=== PATIENT | male | born 1950 | race Hispanic/Latino ===

== ENCOUNTER 2020-05-20 15:31 | Emergency (ER) | payer BC ==
[2020-05-20 16:26] LABS: Protime INR 1.16
--- NOTE | 2020-05-20 16:29 | RAD REPORT ---
EXAM DESCRIPTION: RAD - Chest Single View - 05/20/2020 4:18 pm CLINICAL HISTORY: fall, hit head Chest pain. COMPARISON: No comparisons FINDINGS: Portable technique limits examination quality. The lungs are grossly clear. The heart is normal in size. No displaced fractures.Mildly tortuous thor acic aorta. IMPRESSION: No acute intrathoracic process suspected.
--- NOTE | 2020-05-20 16:38 | RAD REPORT ---
EXAM DESCRIPTION: CT - CTHCSPWOC - 05/20/2020 4:28 pm CLINICAL HISTORY: Trauma, head and neck injury. head injury COMPARISON: No comparisons TECHNIQUE: Axial 5 mm thick images of the head were obtained. Axial 2 mm thick images of the cervical spine were obtained with sagittal and coronal reconstruction images generated and reviewed. All CT scans are performed using dose optimization technique as appropriate and may include automated exposure control or mA/KV adjustment according to patient size. FINDINGS: CT HEAD WITHOUT CONTRAST: No acute hemorrhage, hydrocephalus or extra-axial collection is identified.No areas of brain edema or midline shift. The paranasal sinuses and mastoids are clear.The calvarium is intact. CT CERVICAL SPINE WITHOUT CONTRAST: No fracture or subluxation.Moderate multilevel midcervical degenerative changes.No prevertebral soft tissues swelling is identified. IMPRESSION: No acute intracranial or cervical spine findings. Moderate midcervical degenerative changes.
[2020-05-20 16:42] LABS: Absolute Lymphocytes (CBC) 2.1 K/uL (0.7-4.9); Basophils % 0.7 % (0-1.3); Hematocrit 44.1 % (39.6-49.0); Lymphocytes % 25.1 % (15.3-44.8); MPV 10.5 fL (7.6-11.3); RBC Red Blood Cell Count 4.67 M/uL (4.33-5.43)
[2020-05-20 16:57] LABS: ALT/SGPT 32 U/L (12-78); AST/SGOT 16 U/L (15-37); Albumin 3.8 g/dL (3.4-5.0); Alkaline Phosphatase 80 U/L (45-117); BUN Blood Urea Nitrogen 29 mg/dL (7-18); Bicarbonate 25 mmol/L (21-32); Bilirubin Direct < 0.1 mg/dL (0-0.2); Bilirubin Total 0.4 mg/dL (0.2-1.0); Glucose Level 101 mg/dL (74-106); Magnesium 2.2 mg/dL (1.8-2.4); NT PRO-BNP 116 pg/mL (<125); Potassium 3.9 mmol/L (3.5-5.1); Protein, Total 7.7 g/dL (6.4-8.2); Sodium Level 141 mmol/L (136-145); Troponin (Emerg Dept Use Only) < 0.02 ng/mL (0.0-0.045)
--- NOTE | 2020-05-20 17:12 | ER ---
Nurse's Notes [facility] Name: Mookie Gutierrez Age: 69 yrs Sex: Male : 1950 Arrival Date: 05/20/2020 Time: 15:34 Bed 27 Private MD: Diagnosis: Hypertensive heart disease;Abnormal electrocardiogram [ECG] [EKG];Contusion of unspecified part of head Presentation: 05/20 15:34 Chief complaint: EMS states: Pt from [employer], slipped while working and hit back of his ph head on a pipe, no LOC, BP high 200s systolic, hx of HTN, takes Valsartan, took meds this morning, c/o headache, denies dizziness, nausea, or blurred vision. Coronavirus screen: Client denies travel out of the [place] in the last 14 days. At this time, the client does not indicate any symptoms associated with coronavirus-19. Ebola Screen: No symptoms or risks identified at this time. Mechanism of Injury: The problem was sustained at an industrial site, resulted from a fall, slipped. Initial Sepsis Screen: Does the patient meet any 2 criteria? No. Patient's initial sepsis screen is negative. Does the patient have a suspected source of infection? No. Patient's initial sepsis screen is negative. Risk Assessment: Do you want to hurt yourself or someone else? Patient reports no desire to harm self or others. Onset of symptoms was May 20, 2020. 15:34 Method Of Arrival: EMS: [facility] ph 15:34 Acuity: [facility]RON 2 ph Historical: - Allergies: 15:38 No Known Allergies; ph - Home Meds: 15:38 valsartan oral oral [Active]; ph - PMHx: 15:38 Hypertension; ph - Immunization history:: Adult Immunizations unknown. - Social history:: Smoking status: Patient denies any tobacco usage or history of. Screenin:38 Abuse screen: Denies threats or abuse. Denies injuries from another. Nutritional ph screening: No deficits noted. Tuberculosis screening: No symptoms or risk factors identified. Fall Risk None identified. Assessment: 16:01 General: Appears in no apparent distress. comfortable, well groomed, Behavior is calm, ph cooperative, appropriate for age. Pain: Complains of pain in occipital area. Neuro: Level of Consciousness is awake, alert, obeys commands, Oriented to person, place, time, situation, Reports headache occipital area, Denies weakness blurred vision dizziness, diplopia. Cardiovascular: Denies chest pain, lightheadedness, nausea, Capillary refill < 3 seconds in bilateral fingers Patient's skin is warm and dry. Respiratory: Airway is patent Respiratory effort is even, unlabored, Respiratory pattern is regular, symmetrical. GI: No signs and/or symptoms were reported involving the gastrointestinal system. Patient currently denies nausea, vomiting. Derm: Skin is intact, Skin is pink, warm \T\ dry. Musculoskeletal: Circulation, motion, and sensation intact. Range of motion: intact in all extremities. 17:00 Reassessment: Patient appears in no apparent distress at this time. Patient and/or ph family updated on plan of care and expected duration. Pain level reassessed. Patient is alert, oriented x 3, equal unlabored respirations, skin warm/dry/pink. 18:19 Reassessment: Patient appears in no apparent distress at this time. Patient and/or ph family updated on plan of care and expected duration. Pain level reassessed. Patient is alert, oriented x 3, equal unlabored respirations, skin warm/dry/pink. Pt d/c from ED at 1800, instructed to follow up w/ operator technician tomorrow, after d/c pt it was notes that ERP had added prescriptions x 2 to d/c, attempted to locate pt in lobby and parking lot but was unable to, charge nurse notified who called phone number provided to registration but it was not a working number. Vital Signs: 15:34 BP 186 / 96; Pulse 80; Resp 18; Temp 99.1(O); Pulse Ox 98% on R/A; Weight 74.84 kg; ph 16:33 BP 188 / 91; Pulse 75; Resp 16; Temp 98.9(O); Pulse Ox 98% on R/A; mh5 17:12 BP 181 / 95; Pulse 71; Resp 18; Temp 98.8(O); Pulse Ox 100% on R/A; mh5 17:20 BP 161 / 85; Pulse 62; Resp 16; Pulse Ox 99% on R/A; ph Екатерина Coma Score: 15:34 Eye Response: spontaneous(4). Verbal Response: oriented(5). Motor Response: obeys commands(6). Total: 15. 16:05 Eye Response: spontaneous(4). Verbal Response: oriented(5). Motor Response: obeys cp commands(6). Total: 15. ED Course: 15:34 Patient arrived in ED. ph 15:34 Patient has correct armband on for positive identification. Bed in low position. Call [facility] light in reach. Side rails up X 1. Warm blanket given. satellite project site monitor on. Pulse ox on. NIBP on. 15:35 Prashant Tracy PA is PHCP. cp 15:35 Scott Christy MD is Attending Physician. cp 15:38 Triage completed. ph 15:39 Arm band placed on Patient placed in an exam room, on a stretcher, on monitoring specialist, ph on pulse oximetry. 16:01 Ashlee Read, RN is Primary Nurse. ph 16:06 Basic Metabolic Panel Sent. 5 16:06 CBC with Diff Sent. 5 16:06 LFT's Sent. 5 16:06 Magnesium Sent. 5 16:06 NT PRO-BNP Sent. 5 16:06 Troponin (emerg Dept Use Only) Sent. 5 16:07 PT-INR Sent. 5 16:07 Initial lab(s) drawn, by ut, sent to lab. EKG done, by ED staff, reviewed by Scott Christy MD. Inserted saline lock: 20 gauge in right antecubital area, using aseptic technique. Blood collected. 16:18 XRAY Chest (1 view) In Process Unspecified. EDMS 16:29 CT Head C Spine In Process Unspecified. EDMS 17:09 Bulmaro Christy MD is Hospitalizing Provider. cp 17:40 Tez Erickson MD is Referral Physician. cp 18:05 No provider procedures requiring assistance completed. IV discontinued, intact, ph bleeding controlled, No redness/swelling at site. Pressure dressing applied. Administered Medications: 17:13 Drug: Aspirin Chewable Tablet 324 mg Route: PO; ph 18:03 Follow up: Response: No adverse reaction ph 17:13 Drug: Metoprolol 25 mg Route: PO; ph 18:03 Follow up: Response: No adverse reaction; Blood pressure is lowered ph 17:13 Drug: Metoprolol 5 mg Route: IVP; Site: right antecubital; ph 18:03 Follow up: Response: No adverse reaction; Blood pressure is lowered ph Outcome: 17:10 Decision to Hospitalize by Provider. cp 17:41 Discharge ordered by MD. cp 18:00 Discharged to home ambulatory. ph 18:00 Condition: good 18:00 Discharge instructions given to patient, Instructed on discharge instructions, follow up and referral plans. Demonstrated understanding of instructions, follow-up care. 18:21 Patient left the ED. ph Signatures: Dispatcher [employer] Ashlee Kruger RN RN ph Prashant Tracy PA PA Cherie Daniels [facility]
--- NOTE | 2020-05-20 17:12 | EDPHYS ---
Physician Documentation [facility] Name: Mookie Gutierrez Age: 69 yrs Sex: Male : 1950 Arrival Date: 05/20/2020 Time: 15:34 Bed 27 Private MD: ED Physician Scott Christy HPI: 05/20 16:05 This 69 yrs old Male presents to ER via EMS with complaints of Closed Head cp Injury-Adult, High Blood Pressure. 16:05 The patient or guardian reports injury. The complaints affect the occipital area. cp 16:05 Context of injury: The problem was sustained at work, resulted from slip and fall. cp Onset: The symptoms/episode began/occurred just prior to arrival. Associated signs and symptoms: Loss of consciousness: This patient did not experience any loss of consciousness. Pertinent positives: elevated blood pressure. Patient brought to ED via EMS after falling backward and striking back of head against pipe. No LOC. Patient was found to have elevated blood pressure so he was brought to ED for evaluation. Patient reports he takes Losartan for HTN daily. Historical: - Allergies: 15:38 No Known Allergies; ph - Home Meds: 15:38 valsartan oral oral [Active]; ph - PMHx: 15:38 Hypertension; ph - Immunization history:: Adult Immunizations unknown. - Social history:: Smoking status: Patient denies any tobacco usage or history of. ROS: 16:08 Constitutional: Negative for body aches, chills, fever, poor PO intake. cp 16:08 Eyes: Negative for injury, pain, redness, and discharge. cp 16:08 Neck: Negative for pain with movement, pain at rest, stiffness. 16:08 Cardiovascular: Negative for chest pain, edema, palpitations. 16:08 Respiratory: Negative for cough, shortness of breath, wheezing. 16:08 Abdomen/GI: Negative for abdominal pain, nausea, vomiting, and diarrhea. 16:08 Back: Negative for pain at rest, pain with movement. 16:08 Neuro: Negative for altered mental status, dizziness, headache, loss of consciousness, speech changes, syncope, weakness. 16:08 All other systems are negative. Exam: 16:00 ECG was reviewed by the Attending Physician. cp 16:10 Constitutional: The patient appears in no acute distress, alert, awake, cp non-diaphoretic, non-toxic, well developed, well nourished. 16:10 Head/Face: Normocephalic, atraumatic. cp 16:10 Eyes: Periorbital structures: appear normal, Pupils: equal, round, and reactive to light and accomodation, Extraocular movements: intact throughout, Conjunctiva: normal, no exudate, no injection, Sclera: no appreciated abnormality, Lids and lashes: appear normal, bilaterally. 16:10 ENT: External ear(s): are unremarkable, Nose: is normal, Mouth: Lips: moist, Oral mucosa: pink and intact, moist, Posterior pharynx: Airway: no evidence of obstruction, patent, swelling, is not appreciated, erythema, is not appreciated, exudate, is not appreciated. 16:10 Neck: C-spine: vertebral tenderness, is not appreciated, crepitus, is not appreciated, ROM/movement: is normal, is supple, without pain, no range of motions limitations, no nuchal rigidity. 16:10 Chest/axilla: Inspection: normal, Palpation: is normal, no crepitus, no tenderness. 16:10 Cardiovascular: Rate: normal, Rhythm: regular, Pulses: Pulses are 2+ in right radial artery and left radial artery. Edema: is not appreciated, JVD: is not appreciated. 16:10 Respiratory: the patient does not display signs of respiratory distress, Respirations: normal, no use of accessory muscles, no retractions, labored breathing, is not present, Breath sounds: are clear throughout, no decreased breath sounds. 16:10 Abdomen/GI: Inspection: abdomen appears normal, Palpation: abdomen is soft and non-tender, in all quadrants, rebound tenderness, is not appreciated, voluntary guarding, is not appreciated, involuntary guarding, is not appreciated. 16:10 Back: pain, is absent, ROM is normal. 16:10 Neuro: Orientation: to person, place \T\ time. Mentation: is normal, Cerebellar function: is grossly normal, Motor: moves all fours, strength is normal, Sensation: is normal. Vital Signs: 15:34 BP 186 / 96; Pulse 80; Resp 18; Temp 99.1(O); Pulse Ox 98% on R/A; Weight 74.84 kg; ph 16:33 BP 188 / 91; Pulse 75; Resp 16; Temp 98.9(O); Pulse Ox 98% on R/A; mh5 17:12 BP 181 / 95; Pulse 71; Resp 18; Temp 98.8(O); Pulse Ox 100% on R/A; mh5 17:20 BP 161 / 85; Pulse 62; Resp 16; Pulse Ox 99% on R/A; ph Екатерина Coma Score: 15:34 Eye Response: spontaneous(4). Verbal Response: oriented(5). Motor Response: obeys ph commands(6). Total: 15. 16:05 Eye Response: spontaneous(4). Verbal Response: oriented(5). Motor Response: obeys cp commands(6). Total: 15. MDM: 15:45 Patient medically screened. cp 16:30 Differential diagnosis: Contusion of Hematoma on Intracranial bleed- Concussion cp cerebral contusion. 17:35 Physician consultation: Tez Erickson MD was contacted at 17:35, regarding consult, cp patient's condition, EKG reviewed. Wants patient discharged to home and to f/u in clinic tomorrow. Patient to start metoprolol 25 mg bid and hydrochlorothiazide. 17:40 Data reviewed: vital signs, nurses notes, lab test result(s), EKG, radiologic studies, cp CT scan. 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 Response to treatment: the patient's symptoms have markedly improved after treatment, and as a result, I will discharge patient. 05/20 16:05 Order name: Basic Metabolic Panel; Complete Time: 17: cp 05/20 16:05 Order name: CBC with Diff; Complete Time: 17: cp 05/20 16:05 Order name: LFT's; Complete Time: 17:03 cp 05/20 16:05 Order name: Magnesium; Complete Time: 17:03 cp 05/20 16:05 Order name: NT PRO-BNP; Complete Time: 17:03 cp 05/20 16:05 Order name: PT-INR; Complete Time: 17: cp 05/20 16:05 Order name: CT Head C Spine; Complete Time: 17:03 cp 05/20 16:05 Order name: Troponin (emerg Dept Use Only); Complete Time: 17:03 cp 05/20 16:05 Order name: XRAY Chest (1 view); Complete Time: 17:03 cp 05/20 16:05 Order name: EKG; Complete Time: 16:06 cp 05/20 16:05 Order name: Cardiac monitoring; Complete Time: 16: cp 05/20 16:05 Order name: EKG - Nurse/Tech; Complete Time: 16:06 cp 05/20 16:05 Order name: IV Saline Lock; Complete Time: 16:06 cp 05/20 16:05 Order name: Labs collected and sent; Complete Time: 16:07 cp 05/20 16:05 Order name: O2 Per Protocol; Complete Time: 16:18 cp 05/20 16:05 Order name: O2 Sat Monitoring; Complete Time: 16:18 cp EC:00 Rate is 78 beats/min. Rhythm is regular. WV interval is normal. QRS interval is normal. cp QT interval is normal. T waves are Inverted in leads I, II, aVL, V2, V4, V5. Interpreted by me. Reviewed by me. Administered Medications: 17:13 Drug: Aspirin Chewable Tablet 324 mg Route: PO; ph 18:03 Follow up: Response: No adverse reaction ph 17:13 Drug: Metoprolol 25 mg Route: PO; ph 18:03 Follow up: Response: No adverse reaction; Blood pressure is lowered ph 17:13 Drug: Metoprolol 5 mg Route: IVP; Site: right antecubital; ph 18:03 Follow up: Response: No adverse reaction; Blood pressure is lowered ph Disposition: 05/20/20 17:41 Discharged to Home. Impression: Hypertensive heart disease, Abnormal electrocardiogram [ECG] [EKG], Contusion of unspecified part of head. - Condition is Stable. - Discharge Instructions: Facial or Scalp Contusion, Hypertension, How to Take Your Blood Pressure, [id number], Aspirin and Your Heart, Managing Your Hypertension. - Prescriptions for Metoprolol Tartrate 25 mg Oral Tablet - take 1 tablet by ORAL route 2 times per day with a meal; 20 tablet. Hydrochlorothiazide 12.5 mg Oral Tablet - take 1 tablet by ORAL route once daily; 30 tablet. - Medication Reconciliation Form, Thank You Letter, Antibiotic Education, Prescription Opioid Use form. - Follow up: Tez Erickson MD; When: Tomorrow; Reason: abnormal EKG, hypertension. - Problem is new. - Symptoms have improved. Addendum: 05/23/2020 10:04 Co-signature as Attending Physician, Scott Christy MD. r n Signatures: Dispatcher [employer] EDMS Scott Christy MD MD rn Ashlee Read RN RN ph Rossana, CARMENZA Cerda cp Corrections: (The following items were deleted from the chart) 05/20 17:40 17:10 Hospitalization Ordered by Bulmaro Christy MD for Observation. Preliminary cp diagnosis is Abnormal electrocardiogram [ECG] [EKG]; Contusion of unspecified part of head - from slip and fall; Hypertensive heart disease. Bed requested for Telemetry/MedSurg (observation). Status is Observation. Condition is Stable. Problem is new. Symptoms have improved. cp 17:55 17:41 05/20/2020 17:41 Discharged to Home. Impression: Hypertensive heart disease; cp Abnormal electrocardiogram [ECG] [EKG]. Condition is Stable. Forms are Medication Reconciliation Form, Thank You Letter, Antibiotic Education, Prescription Opioid Use. Follow up: Tez Erickson; When: Tomorrow; Reason: abnormal EKG, hypertension. Problem is new. Symptoms have improved. cp 18:21 17:55 05/20/2020 17:41 Discharged to Home. Impression: Hypertensive heart disease; ph Abnormal electrocardiogram [ECG] [EKG]; Contusion of unspecified part of head. Condition is Stable. Forms are Medication Reconciliation Form, Thank You Letter, Antibiotic Education, Prescription Opioid Use. Follow up: Tez Erickson; When: Tomorrow; Reason: abnormal EKG, hypertension. Problem is new. Symptoms have improved. cp
[2020-05-20] MEDS ORDERED: ASPIRIN 81 MG CHEWABLE TABLET ONE (17:23)
[2020-05-20] MEDS ORDERED: METOPROLOL TAR 25 MG TAB ONE (17:24)
[2020-05-20] MEDS ORDERED: METOPROLOL TARTRATE 5 MG/5 ML INJ IV ONE (17:24)
--- NOTE | 2020-05-20 17:52 | P.CNS ---
Date of Consult: 05/20/20 Reason for Consult: t wave inversions Requesting Physician: Prashant Tracy Chief Complaint: fell at work, slipped on mud History of Present Illness: 69yo M, PMH: HTN, sent to ED from work after slipping and falling in mud. He reports hitting his head, was wearing a helmet. He denies any other complaints. Currently without any pain, denies chest pain, denies shortness of breath, abdominal pain, lower extremity edema, difficulty with urination/bowel movement. Denies any cardiac cancer, also reports has not seen a physician in several years. In the ED was noted to have hypertension 180s/90s, reports he has been taking his losartan. He does not recall the dosage. Workup in the ED notable for negative CT head/C-spine, negative chest x-ray, labwork rather unremarkable except for creatinine of 1.46. Troponin negative. EKG with T-wave inversions in leads V2, V4-T6, 1,2 avL, no significant ST elevation/depression - Past Medical/Surgical History -: HTN Past Surgical History: Patient denies surgical history - Social History Smoking Status: Never smoker Alcohol use: No Place of Residence: Home Review of Systems 10-point ROS is otherwise unremarkable Physical Examination General: Alert, In no apparent distress, Oriented x3 HEENT: PERRLA, Sclerae nonicteric Neck: Supple Respiratory: Clear to auscultation bilaterally, Normal air movement Cardiovascular: No edema, Regular rate/rhythm, Normal S1 S2, No murmurs Gastrointestinal: Soft and benign, Non-distended, No tenderness Musculoskeletal: No erythema, No tenderness Integumentary: No rashes, No significant lesion Neurological: Normal speech, Normal strength at 5/5 x4 extr, Cranial nerves 3-12 intact, Normal affect Laboratory Data (last 24 hrs) 05/20/20 16:08: PT 13.7 H, INR 1.16 05/20/20 16:08: WBC 8.5, Hgb 14.5, Hct 44.1, Plt Count 278 05/20/20 16:08: Sodium 141, Potassium 3.9, BUN 29 H, Creatinine 1.46 H, Glucose 101, Magnesium 2.2, Total Bilirubin 0.4, AST 16, ALT 32, Alkaline Phosphatase 80 Physician Review Additional Text: T-wave inversions HTN Mechanical Fall -CT head/c-spine negative for trauma/bleed -BP improved with PO lopressor in ED -denies any chest pain /pressure -reviewed EKG and results with Dr. Erickson, recommended dc home with metoprolol, losartan-HCTZ and to f/u with him in office tomorrow at 1pm, EKG likely due to LVH -discussed with patient who is agreement with plan Time Spent Managing Pts care (In Minutes): 60
[2020-05-20 18:31] VITALS: TEMP 98.8
[2020-05-20 18:33] VITALS: BP 161/85; O2SAT 99
== END 2020-05-20 18:21 | disposition home or self-care (01) ==
LOC: ER 15:31
DX: S00.93XA Contusion of unspecified part of head, initial encounter (principal); W01.198A Fall on same level from slipping, tripping and stumbling with subsequent striking against other object, initial encounter; Y93.89 Activity, other specified; Y92.69 Other specified industrial and construction area as the place of occurrence of the external cause; Y99.0 Civilian activity done for income or pay; I11.9 Hypertensive heart disease without heart failure; R94.31 Abnormal electrocardiogram [ECG] [EKG]
CPT/HCPCS: 36415; 70450; 71045; 72125; 80048; 80076; 83735; 83880; 84484; 85025; 85610; 96374; 99285

== ENCOUNTER 2022-09-06 08:46 | Emergency (ER) | payer OTHER, BC ==
[2022-09-06 09:24] LABS: Absolute Lymphocytes (CBC) 2.2 K/uL (0.7-4.9); Hematocrit 44.6 % (39.6-49.0); Lymphocytes % 28.4 % (15.3-44.8); MCV 93.7 fL (80-100); MPV 9.2 fL (7.6-11.3); RBC Red Blood Cell Count 4.76 M/uL (4.33-5.43)
[2022-09-06] MEDS ORDERED: HYDRALAZINE HCL 20 MG/ML VIAL ONE (09:45)
[2022-09-06 09:50] LABS: Potassium 4.2 mEq/L (3.5-5.1); Troponin High Sensitivity 24.3 pg/mL (<58.9)
--- NOTE | 2022-09-06 10:04 | RAD REPORT ---
EXAM DESCRIPTION: RAD - Chest Single View - 09/06/2022 9:36 am CLINICAL HISTORY: DYSPNEA Chest pain. COMPARISON: Chest Single View dated 05/20/2020 FINDINGS: Portable technique limits examination quality. The lungs are grossly clear. The heart is normal in size. The mild tortuosity of the thoracic aorta. No displaced fractures. IMPRESSION: No acute intrathoracic process suspected.
[2022-09-06] MEDS ORDERED: cloNIDine HCL 0.1 MG TAB ONE (10:28)
--- NOTE | 2022-09-06 11:11 | ER ---
Nurse's Notes [facility] Name: Mookie Gutierrez Age: 72 yrs Sex: Male : 1950 Arrival Date: 09/06/2022 Time: 08:46 Bed 20 Private MD: Diagnosis: Hypertensive urgency Presentation: 09/06 08:48 Chief complaint: EMS states: called out for SOB , pt states he inhaled some inhalation, iw he went to the clinic an his BP was over 200 systolic so they had him come to ER for eval, takes losartan for BP. Coronavirus screen: At this time, the client does not indicate any symptoms associated with coronavirus-19. Ebola Screen: Patient negative for fever greater than or equal to 101.5 degrees Fahrenheit, and additional compatible Ebola Virus Disease symptoms Patient denies exposure to infectious person. Patient denies travel to an Ebola-affected area in the 21 days before illness onset. No symptoms or risks identified at this time. Initial Sepsis Screen: Does the patient meet any 2 criteria? No. Patient's initial sepsis screen is negative. Does the patient have a suspected source of infection? No. Patient's initial sepsis screen is negative. Risk Assessment: Do you want to hurt yourself or someone else? Patient reports no desire to harm self or others. Onset of symptoms was September 06, 2022. 08:48 Method Of Arrival: EMS: [facility] iw 08:48 Acuity: [facility] 3 iw Historical: - Allergies: 08:50 No Known Allergies; iw - Home Meds: 08:50 losartan 25 mg oral tablet once [Active]; iw - PMHx: 08:47 Hypertension; aa5 - PSHx: 08:50 None; iw - Immunization history:: Adult Immunizations unknown. - Social history:: Smoking status: Patient denies any tobacco usage or history of. Screenin:46 [facility] ED Fall Risk Assessment (Adult) History of falling in the last 3 months, ph including since admission No falls in past 3 months (0 pts) Confusion or Disorientation No (0 pts) Intoxicated or Sedated No (0 pts) Impaired Gait No (0 pts) Mobility Assist Device Used No (0 pt) Altered Elimination No (0 pt) Score/Fall Risk Level 0 - 2 = Low Risk Oriented to surroundings, Maintained a safe environment, Hourly rounding (assess needs \T\ fall precautionary measures) done. Abuse screen: Denies threats or abuse. Denies injuries from another. Nutritional screening: No deficits noted. Tuberculosis screening: No symptoms or risk factors identified. Assessment: 09:45 General: Appears in no apparent distress. comfortable, well groomed, Behavior is calm, ph cooperative, appropriate for age. Pain: Denies pain. Neuro: Level of Consciousness is awake, alert, obeys commands, Oriented to person, place, time, situation, Denies dizziness, headache. Cardiovascular: Capillary refill < 3 seconds in bilateral fingers Patient's skin is warm and dry. Cardiovascular: Reports shortness of breath, Denies chest pain. Respiratory: Airway is patent Respiratory effort is even, unlabored. Respiratory: Reports shortness of breath at rest Respiratory pattern is regular, symmetrical. GI: No signs and/or symptoms were reported involving the gastrointestinal system. Derm: Skin is pink, warm \T\ dry. 11:44 Reassessment: Patient appears in no apparent distress at this time. Patient and/or ph family updated on plan of care and expected duration. Pain level reassessed. Patient is alert, oriented x 3, equal unlabored respirations, skin warm/dry/pink. Vital Signs: 08:48 BP 206 / 98; Pulse 75; Resp 16; Temp 97.9; Pulse Ox 99% on R/A; iw 09:44 BP 173 / 91; Pulse 72; Resp 18; Pulse Ox 98% on R/A; ph 10:30 BP 201 / 89; Pulse 74; Resp 18; Pulse Ox 98% on R/A; ph 11:09 BP 176 / 71; Pulse 72; Resp 18; Pulse Ox 100% on R/A; ph ED Course: 08:47 Patient arrived in ED. aa5 08:50 Triage completed. iw 08:51 Pau Ibrahim FNP is PHCP. jh7 08:51 Elio Ryan DO is Attending Physician. jh7 08:51 Arm band placed on. iw 08:57 Ashlee Read, RN is Primary Nurse. ph 09:11 Inserted saline lock: 20 gauge in right antecubital area, using aseptic technique. zm Blood collected. 09:11 Basic Metabolic Panel Sent. zm 09:11 CBC with Diff Sent. zm 09:11 NT PRO-BNP Sent. zm 09:11 Troponin HS Sent. zm 09:38 XRAY Chest (1 view) In Process Unspecified. EDMS 09:46 Patient has correct armband on for positive identification. Bed in low position. Call ph light in reach. Side rails up X 1. Client placed on continuous cardiac and pulse oximetry monitoring. NIBP monitoring applied. 11:43 No provider procedures requiring assistance completed. IV discontinued, intact, ph bleeding controlled, No redness/swelling at site. Pressure dressing applied. Administered Medications: 09:44 Drug: hydrALAZINE IVP 10 mg Route: IVP; Site: right antecubital; ph 10:39 Follow up: Response: No adverse reaction; Blood pressure is unchanged ph 10:30 Drug: cloNIDine PO 0.1 mg Route: PO; ph 11:43 Follow up: Response: No adverse reaction; Blood pressure is lowered ph Medication: 09:46 VIS not applicable for this client. ph Outcome: 11:11 Discharge ordered by MD. fallon 11:43 Discharged to home ambulatory. ph 11:43 Condition: good 11:43 Discharge instructions given to patient, Instructed on discharge instructions, follow up and referral plans. Demonstrated understanding of instructions, follow-up care. 11:44 Patient left the ED. ph Signatures: Dispatcher [employer] EDMS Antonina Payne RN RN iw Calderon, Audri, RN RN aa5 Hall, Patricia, RN RN ph Martinez, Zaina zm Hadash, Jennifer, HEAD BANDER AND LINER OPERATOR HEAD BANDER AND LINER OPERATOR [facility]
--- NOTE | 2022-09-06 11:11 | EDPHYS ---
Physician Documentation [facility] Name: Mookie Gutierrez Age: 72 yrs Sex: Male : 1950 Arrival Date: 09/06/2022 Time: 08:46 Bed 20 Private MD: ED Physician Elio Ryan HPI: 09/06 08:47 This 72 yrs old Male presents to ER via EMS with complaints of High Blood [facility] Pressure. 08:47 The patient has elevated blood pressure and discovered this at a physician's office, [facility] and sent to the emergency department for evaluation. Onset: The symptoms/episode began/occurred acutely. 72-year-old male presents to the ER for hypertension and shortness of breath. The patient states that he went to see his doctor at the [facility] because he inhaled some insulation yesterday and now feels short of breath. The clinic evaluated him and sent him to the ER due to a blood pressure of 212/95. The patient states he takes losartan daily. Denies any other symptoms at this time.. Historical: - Allergies: 08:50 No Known Allergies; iw - Home Meds: 08:50 losartan 25 mg oral tablet once [Active]; iw - PMHx: 08:47 Hypertension; aa5 - PSHx: 08:50 None; iw - Immunization history:: Adult Immunizations unknown. - Social history:: Smoking status: Patient denies any tobacco usage or history of. ROS: 08:47 Constitutional: Negative for fever, chills, and weight loss, Eyes: Negative for injury, [facility] pain, redness, and discharge, ENT: Negative for injury, pain, and discharge, Neck: Negative for injury, pain, and swelling, Cardiovascular: Negative for chest pain, palpitations, and edema, Respiratory: Negative for shortness of breath, cough, wheezing, and pleuritic chest pain, Abdomen/GI: Negative for abdominal pain, nausea, vomiting, diarrhea, and constipation, MS/Extremity: Negative for injury and deformity, Skin: Negative for injury, rash, and discoloration, Neuro: Negative for headache, weakness, numbness, tingling, and seizure. 08:47 Respiratory: Positive for shortness of breath, on exertion. 08:47 All other systems are negative. Exam: 08:47 Constitutional: This is a well developed, well nourished patient who is awake, alert, jh7 and in no acute distress. Head/Face: Normocephalic, atraumatic. Eyes: Pupils equal round and reactive to light, extra-ocular motions intact. Lids and lashes normal. Conjunctiva and sclera are non-icteric and not injected. Cornea within normal limits. Periorbital areas with no swelling, redness, or edema. Neck: Trachea midline, no thyromegaly or masses palpated, and no cervical lymphadenopathy. Supple, full range of motion without nuchal rigidity, or vertebral point tenderness. No Meningismus. Cardiovascular: Regular rate and rhythm with a normal S1 and S2. No gallops, murmurs, or rubs. Normal PMI, no JVD. No pulse deficits. Respiratory: Lungs have equal breath sounds bilaterally, clear to auscultation and percussion. No rales, rhonchi or wheezes noted. No increased work of breathing, no retractions or nasal flaring. Abdomen/GI: Soft, non-tender, with normal bowel sounds. No distension or tympany. No guarding or rebound. No evidence of tenderness throughout. Back: No spinal tenderness. No costovertebral tenderness. Full range of motion. Skin: Warm, dry with normal turgor. Normal color with no rashes, no lesions, and no evidence of cellulitis. MS/ Extremity: Pulses equal, no cyanosis. Neurovascular intact. Full, normal range of motion. Neuro: Awake and alert, GCS 15, oriented to person, place, time, and situation. Motor strength 5/5 in all extremities. Sensory grossly intact. Normal gait. 09:10 ECG was reviewed by the Attending Physician. Compared with EKG done on 05/20/2020. No jh7 changes in comparison to old EKG. Patient still denies chest pain and is in no acute distress. Vital Signs: 08:48 BP 206 / 98; Pulse 75; Resp 16; Temp 97.9; Pulse Ox 99% on R/A; iw 09:44 BP 173 / 91; Pulse 72; Resp 18; Pulse Ox 98% on R/A; ph 10:30 BP 201 / 89; Pulse 74; Resp 18; Pulse Ox 98% on R/A; ph 11:09 BP 176 / 71; Pulse 72; Resp 18; Pulse Ox 100% on R/A; ph MDM: 08:51 Patient medically screened. 7 10:35 ED course: Spoke to the patient and employer. The employer stated that the small piece jh7 of insulation actually only landed on the patient's tongue and that the company required he get checked out by the at [facility]. He was sent to the ER only for high blood pressure. The patient denies any shortness of breath at this time.. 11:00 Differential diagnosis: hypertensive crisis, Malignant HTN. Data interpreted: Pulse jh7 oximetry: is 100 %. Interpretation: normal. Data reviewed: vital signs, nurses notes, old medical records, old EKG lab test result(s), EKG, radiologic studies, plain films. I considered the following discharge prescriptions or medication management in the emergency department Medications were administered in the Emergency Department. See MAR. Independent interpretation of the following test(s) in the Emergency Department EKG: See my EKG interpretation above X-Ray: My interpretation is no acute findings. Care significantly affected by the following chronic conditions: Hypertension. Counseling: I had a detailed discussion with the patient and/or guardian regarding: the historical points, exam findings, and any diagnostic results supporting the discharge/admit diagnosis, to return to the emergency department if symptoms worsen or persist or if there are any questions or concerns that arise at home. 09/06 08:51 Order name: Basic Metabolic Panel; Complete Time: 10:27 [facility] 09/06 08:51 Order name: CBC with Diff; Complete Time: 09:56 [facility] 09/06 08:51 Order name: NT PRO-BNP; Complete Time: 10:27 [facility] 09/06 08:51 Order name: Troponin HS; Complete Time: 10:27 [facility] 09/06 08:51 Order name: XRAY Chest (1 view); Complete Time: 10:09 [facility] 09/06 08:51 Order name: EKG; Complete Time: 08:52 [facility] 09/06 08:51 Order name: Cardiac monitoring; Complete Time: 10:04 [facility] 09/06 08:51 Order name: EKG - Nurse/Tech; Complete Time: 09:11 [facility] 09/06 08:51 Order name: IV Saline Lock; Complete Time: 09: [facility] 09/06 08:51 Order name: Labs collected and sent; Complete Time: 09:11 [facility] 09/06 08:51 Order name: O2 Per Protocol; Complete Time: 08:59 [facility] 09/06 08:51 Order name: O2 Sat Monitoring; Complete Time: 08:59 [facility] 09/06 10:59 Order name: Recheck Blood Pressure; Complete Time: 11:39 jh7 EC:10 Rate is 69 beats/min. Rhythm is regular. QRS Holcomb is Normal. OK interval is normal at 7 160 msec. QRS interval is normal at 88 msec. QT interval is normal at 418 msec. No Q waves. T waves are Inverted in leads I, II, aVL, aVF, V4, V5, V6. ST Segment is elevated in leads V1, V3. Clinical impression: Normal sinus rhythm with inferior and anteriolateral ST and T wave abnormalities. Administered Medications: 09:44 Drug: hydrALAZINE IVP 10 mg Route: IVP; Site: right antecubital; ph 10:39 Follow up: Response: No adverse reaction; Blood pressure is unchanged ph 10:30 Drug: cloNIDine PO 0.1 mg Route: PO; ph 11:43 Follow up: Response: No adverse reaction; Blood pressure is lowered ph Disposition: 10:32 Co-signature as Attending Physician, Elio Ryan DO I was immediately available on-site ms3 in the Emergency Department for consultation in the care of the patient. Disposition Summary: 09/06/22 11:11 Discharge Ordered Location: Home [facility] Problem: new [facility] Symptoms: have improved jh Condition: Stable [facility] Diagnosis - Hypertensive urgency 7 Followup: [facility] - With: Private Physician - When: 2 - 3 days - Reason: Recheck today's complaints Discharge Instructions: - Discharge Summary Sheet [facility] - Hypertension, Adult [facility] - Managing Your Hypertension [facility] Forms: - Medication Reconciliation Form [facility] - Thank You Letter [facility] Signatures: Dispatcher [employer] Antonina Hoover RN RN iw Calderon, Audri, RN RN aa5 Hall, Patricia, RN RN ph Sims, Marcus, DO DO ms3 Pau Ibrahim FNP CLINICAL DATA PROGRAMMER [facility]
[2022-09-06 11:48] VITALS: TEMP 97.9
[2022-09-06 11:52] VITALS: BP 176/71; O2SAT 100
--- NOTE | 2022-09-07 16:00 | EKG ---
Test Date: 2022-09-06 Test Time: 09:06:53 Gear Lapping Machine Operator: ANDREAS MEASUREMENT RESULTS: Intervals: Rate: 69 FL: 160 QRSD: 88 QT: 418 QTc: 447 [place]: P: 45 FL: 160 QRS: 43 T: 169 INTERPRETIVE STATEMENTS: Normal sinus rhythm Possible Left atrial enlargement ST & T wave abnormality, consider inferior ischemia ST & T wave abnormality, consider anterolateral ischemia Abnormal ECG Compared to ECG 05/20/2020 15:50:01 No significant changes Electronically Signed On 09-07-22 15:57:37 CDT by Tez Erickson
== END 2022-09-06 11:44 | disposition home or self-care (01) ==
LOC: ER 08:46
DX: I16.0 Hypertensive urgency (principal); I10 Essential (primary) hypertension
CPT/HCPCS: 93005; 85025; 80048; 36415; 84484; 83880; 71045; 96374; 99284; J0360